=== PATIENT | male | born 1960 | race Caucasian/White ===

== ENCOUNTER 2019-06-11 15:55 | Emergency (ER) | payer OTHER, BC ==
--- NOTE | 2019-06-11 16:04 | PDOC ---
Rapid Medical Evaluation Time Seen by Provider: 06/11/19 16:02 Medical Evaluation: 06/11/19 16:03 Patient had brief in-person examination in triage cc:hit by A glass that fell from the wall while he was working today HPI: Nad heenT: superficial laceration to right side of forehead ext: small superficial laceration to right wrist orders: none This patient will proceed to ed for further evaluation Discharge Disposition - Diagnosis Minor head injury - Referrals - Patient Instructions - Post Discharge Activity
[2019-06-11 16:09] VITALS: BP 160/79; PULSE 70; TEMP 97.7; BMI 24.5
[2019-06-11] MEDS ORDERED: DIPHTH,PERTUSS(ACELL),TET 0.5 ML DISP.SYRIN IM ONE ×2 (16:25→16:27)
--- NOTE | 2019-06-11 16:36 | PDOC ---
History of Present Illness - General Chief Complaint: Injury Stated Complaint: INJURY Time Seen by Provider: 06/11/19 16:02 History Source: Patient Exam Limitations: No Limitations - History of Present Illness Initial Comments: 06/11/19 16:25 piece of glass fell from wall breaking and striking patient in forehead then shard scraped right forearm. Has multiple fragments of glass in hair but no further wounds. 06/11/19 16:38 Occurred: reports: just prior to arrival, this afternoon Severity: reports: mild, moderate Pain Location: reports: face Method of Injury: Yes: direct blow Loss of Consciousness: no loss of consciousness Associated Symptoms (Fall): denies symptoms Past History - Travel Traveled outside of the country in the last 30 days: No Close contact w/someone who was outside of country & ill: No - Past Medical History Allergies/Adverse Reactions: Allergies Allergy/AdvReac Type Severity Reaction Status Date / Time No Known Allergies Allergy Verified 06/11/19 16:09 COPD: No HTN: Yes - Suicide/Smoking/Psychosocial Hx Smoking History: Never smoked Information on smoking cessation initiated: No Hx Alcohol Use: No Drug/Substance Use Hx: No Review of Systems - Review of Systems Able to Perform ROS?: Yes Is the patient limited Hebrew proficient: Yes Constitutional: Yes: Symptoms Reported, See HPI. No: Fever, Malaise HEENTM: Yes: See HPI. No: Symptoms Reported Respiratory: No: Symptoms reported Musculoskeletal: Yes: Symptoms Reported, See HPI *Physical Exam - Vital Signs Last Vital Signs Temp Pulse Resp BP Pulse Ox 97.7 F 70 18 160/79 99 06/11/19 16:05 06/11/19 16:05 06/11/19 16:05 06/11/19 16:05 06/11/19 16:05 - Physical Exam General Appearance: Yes: Nourished, Appropriately Dressed, Apparent Distress, Mild Distress HEENT: positive: EDI, Normal ENT Inspection, TMs Normal, Pharynx Normal Neck: positive: Supple. negative: Tender, Lymphadenopathy (R), Lymphadenopathy (L) Respiratory/Chest: positive: Lungs Clear Gastrointestinal/Abdominal: positive: Soft. 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 *DC/Admit/Observation/Transfer Diagnosis at time of Disposition: Multiple abrasions Minor head injury Qualifiers: Encounter type: initial encounter Qualified Code(s): S09.90XA - Unspecified injury of head, initial encounter - Discharge Dispostion Disposition: HOME Condition at time of disposition: Stable Decision to Admit order: No - Referrals - Patient Instructions Printed Discharge Instructions: DI for Laceration Repair With Dermabond Additional Instructions: Rest, no strenuous activity or exercise until glue is dissolved or lifted Wash from the neck down only and avoid hot steamy environment until Dermabond is gone No bathing or swimming until Dermabond is dissolved Avoid peeling away as wound will open Dermabond should be resolved within 3-7 days May use Tylenol or Motrin for pain relief 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
== END 2019-06-11 16:43 | disposition home or self-care (01) ==
LOC: JERFT 15:55
PROC: 3E0234Z Introduction of Serum, Toxoid and Vaccine into Muscle, Percutaneous Approach (ICD-10-PCS; principal; 2019-06-11)
PROC: 0HQDXZZ Repair Right Lower Arm Skin, External Approach (ICD-10-PCS; 2019-06-11)
DX: S51.811A Laceration without foreign body of right forearm, initial encounter (principal); S60.812A Abrasion of left wrist, initial encounter; S09.8XXA Other specified injuries of head, initial encounter; W25.XXXA Contact with sharp glass, initial encounter; W22.8XXA Striking against or struck by other objects, initial encounter; Y93.89 Activity, other specified; Y92.89 Other specified places as the place of occurrence of the external cause; Y99.0 Civilian activity done for income or pay
CPT/HCPCS: 90715; 99281-25